=== PATIENT | male | born 1970 | race Caucasian/White ===

== ENCOUNTER 2017-01-26 21:15 | Emergency (ER) | payer OTHER ==
--- NOTE | 2017-01-26 22:14 | EDM.PDOC ---
ED HPI GENERAL MEDICAL PROBLEM - General Chief Complaint: Chest Pain Stated Complaint: CHEST PAIN Time Seen by Provider: 01/26/17 21:25 Source of Information: Reports: Patient History Limitations: Reports: No Limitations - History of Present Illness INITIAL COMMENTS - FREE TEXT/NARRATIVE: c/o L breast pain pt with discomfort in his L breast above the nipple when combining yesterday, hurt some again on awakening today and a little more when combining again, tender to touch, no mass, no warmth no radiation, no change in pain with moving LUE or DB not taken meds no sob, no n/v, no f/c/d h/o CP 5y ago and had neg w/u never smoked, takes no meds here with Left Breast Pain Score (Numeric/FACES): 7 - Related Data Allergies Allergy/AdvReac Type Severity Reaction Status Date / Time No Known Allergies Allergy Verified 01/26/17 21:38 Home Meds: Home Meds NK [No Known Home Meds] 01/26/17 [History] Past Medical History - Past Health History Medical/Surgical History: Denies Medical/Surgical History - Infectious Disease History Infectious Disease History: Reports: Chicken Pox Social & Family History - Family History Family Medical History: Noncontributory - Tobacco Use Smoking Status *Q: Never Smoker Second Hand Smoke Exposure: No - Caffeine Use Caffeine Use: Reports: Coffee - Recreational Drug Use Recreational Drug Use: No ED ROS GENERAL - Review of Systems Review Of Systems: See Below Constitutional: Reports: No Symptoms HEENT: Reports: No Symptoms Respiratory: Reports: No Symptoms Cardiovascular: Reports: Chest Pain Endocrine: Reports: No Symptoms GI/Abdominal: Reports: No Symptoms : Reports: No Symptoms Musculoskeletal: Reports: No Symptoms Skin: Reports: No Symptoms Neurological: Reports: No Symptoms Psychiatric: Reports: No Symptoms Hematologic/Lymphatic: Reports: No Symptoms Immunologic: Reports: No Symptoms ED EXAM, GENERAL - Physical Exam Exam: See Below Exam Limited By: No Limitations General Appearance: Alert, WD/WN, No Apparent Distress Ears: Normal External Exam Nose: Normal Inspection Throat/Mouth: Normal Inspection, Normal Voice, No Airway Compromise Head: Atraumatic, Normocephalic Neck: Normal Inspection, Supple, Non-Tender, Full Range of Motion Respiratory/Chest: No Respiratory Distress, Lungs Clear, Normal Breath Sounds, No Accessory Muscle Use, Other (breasts symmetric, perhaps slight tender at 10 o 'clock 3 cm from areola on L, no red, no warm, no nodule, no induration, no L axillary LNs) Cardiovascular: Regular Rate, Rhythm, No Edema, No Gallop, No JVD, No Rub, Other (2/6 [place] at LSB, quiet precordium) GI/Abdominal: Soft, Non-Tender, No Distention Back Exam: Normal Inspection, Full Range of Motion, NT Extremities: Normal Inspection, Normal Range of Motion, Non-Tender, No Pedal Edema Neurological: Alert, Oriented, CN II-XII Intact, Normal Cognition, No Motor/ Sensory Deficits Psychiatric: Normal Affect, Normal Mood Skin Exam: Warm, Dry, Intact, Normal Color, No Rash Lymphatic: No Adenopathy Course - Vital Signs Last Recorded V/S: Last Vital Signs Temp 36.5 C 01/26/17 21:39 Pulse 88 01/26/17 21:39 Resp 15 01/26/17 21:39 BP 154/98 H 01/26/17 21:39 Pulse Ox 99 01/26/17 21:39 - Orders/Labs/Meds Orders: Active Orders 24 hr Category Date Time Status EKG Documentation Completion [RC] ASDIRECTED Care 01/26/17 21:47 Active Chest 2V [CR] Stat Exams 01/26/17 21:43 Taken EKG 12 Lead [EK] Routine Ther 01/26/17 21:47 Ordered Labs: Laboratory Tests 01/26/17 01/26/17 01/26/17 Range/Units 22:05 22:05 22:05 WBC 9.3 (4.5-12.0) X10-3/uL RBC 5.44 (4.30-5.75) x10(6)uL Hgb 16.2 H (11.5-15.5) g/dL Hct 48.2 (30.0-51.3) % MCV 88.6 (80-96) fL MCH 29.8 (27.7-33.6) pg MCHC 33.6 (32.2-35.4) g/dL RDW 11.6 (11.5-15.5) % Plt Count 246 (125-369) X10(3)uL MPV 7.9 (7.4-10.4) fL Neut % (Auto) 65.5 (46-82) % Lymph % (Auto) 24.2 (13-37) % [place] % (Auto) 8.0 (4-12) % Eos % (Auto) 2 (1.0-5.0) % Baso % (Auto) 0 (0-2) % Neut # (Auto) 6.2 (1.6-8.3) # Lymph # (Auto) 2.2 (0.6-5.0) # [place] # (Auto) 0.7 (0.0-1.3) # Eos # (Auto) 0.2 (0.0-0.8) # Baso # (Auto) 0.0 (0.0-0.2) # D-Dimer, Quantitative (100-400) ng/mL Sodium 138 (135-145) mmol/L Potassium 3.7 (3.5-5.3) mmol/L Chloride 104 (100-110) mmol/L Carbon Dioxide 27 (23-29) mmol/L BUN 19 (5-20) mg/dL Creatinine 1.2 (0.6-1.3) mg/dL Est Cr Clr Drug Dosing 81.92 mL/min Estimated GFR (MDRD) > 60 (>60) BUN/Creatinine Ratio 15.8 (9-20) Glucose 106 (80-116) mg/dL Calcium 9.1 (8.6-10.2) mg/dL Total Bilirubin 0.5 (0.1-1.3) mg/dL AST 23 (5-27) IU/L ALT 31 H (14-26) IU/L Alkaline Phosphatase 49 L (56-112) IU/L Troponin I < 0.01 L (0.02-0.06) NG/ML C-Reactive Protein < 0.5 (0.0-1.0) mg/dL Total Protein 7.6 (6.0-8.0) g/dL Albumin 4.3 (3.5-5.2) g/dL Globulin 3.3 g/dL Albumin/Globulin Ratio 1.3 01/26/ Range/Units 22:05 WBC (4.5-12.0) X10-3/uL RBC (4.30-5.75) x10(6)uL Hgb (11.5-15.5) g/dL Hct (30.0-51.3) % MCV (80-96) fL MCH (27.7-33.6) pg MCHC (32.2-35.4) g/dL RDW (11.5-15.5) % Plt Count (125-369) X10(3)uL MPV (7.4-10.4) fL Neut % (Auto) (46-82) % Lymph % (Auto) (13-37) % [place] % (Auto) (4-12) % Eos % (Auto) (1.0-5.0) % Baso % (Auto) (0-2) % Neut # (Auto) (1.6-8.3) # Lymph # (Auto) (0.6-5.0) # [place] # (Auto) (0.0-1.3) # Eos # (Auto) (0.0-0.8) # Baso # (Auto) (0.0-0.2) # D-Dimer, Quantitative < 100 L (100-400) ng/mL Sodium (135-145) mmol/L Potassium (3.5-5.3) mmol/L Chloride (100-110) mmol/L Carbon Dioxide (23-29) mmol/L BUN (5-20) mg/dL Creatinine (0.6-1.3) mg/dL Est Cr Clr Drug Dosing mL/min Estimated GFR (MDRD) (>60) BUN/Creatinine Ratio (9-20) Glucose (80-116) mg/dL Calcium (8.6-10.2) mg/dL Total Bilirubin (0.1-1.3) mg/dL AST (5-27) IU/L ALT (14-26) IU/L Alkaline Phosphatase (56-112) IU/L Troponin I (0.02-0.06) NG/ML C-Reactive Protein (0.0-1.0) mg/dL Total Protein (6.0-8.0) g/dL Albumin (3.5-5.2) g/dL Globulin g/dL Albumin/Globulin Ratio - Re-Assessments/Exams Free Text/Narrative Re-Assessment/Exam: 01/26/17 22:48 w/u neg, EKG wnl, CxR neg, labs all neg hx and PE c/w muscle strain pt states he has no PCP, goes to [facility] when he needs to see a physician Departure - Departure Time of Disposition: 22:49 Disposition: Home, Self-Care 01 Condition: Good Clinical Impression: Anterior chest wall pain, Strain of left pectoralis muscle Instructions: Chest Wall Pain, Muscle Strain Referrals: PCP,None [Primary Care Provider] - Forms: ED Department Discharge Additional Instructions: Take ibuprofen 200 mg 4 tabs 3 times a day for 7 days. Use ice for 10 minutes several times a day as needed. See your physician in one week. Return to ED if you are feeling worse. Call your Physician or Return to Emergency Department if: * Your condition worsens in any way. * You develop fever greater than 100.4. * You have vomitting that does not stop with medications. * You have pain that is not controlled with medications. - My Orders Last 24 Hours: My Active Orders 01/26/17 21:43 Chest 2V [CR] Stat 01/26/17 21:47 EKG Documentation Completion [RC] ASDIRECTED EKG 12 Lead [EK] Routine - Assessment/Plan Last 24 Hours: My Active Orders 01/26/17 21:43 Chest 2V [CR] Stat 01/26/17 21:47 EKG Documentation Completion [RC] ASDIRECTED EKG 12 Lead [EK] Routine
--- NOTE | 2017-01-27 12:16 | CR ---
INDICATION: Left-sided chest pain. CHEST: PA and lateral views of the chest 01/26/2017 - no comparisons. Overlying EKG leads are noted. There appears to be some calcification at the arch of the aorta. The heart appears to be at the upper limits of normal in size. No specific chamber enlargement identified. Mediastinum and bony thorax were otherwise unremarkable. An active infiltrate or effusion was not identified. IMPRESSION: Findings suggest early ASHD. MTDD
== END 2017-01-26 22:52 | disposition home or self-care (01) ==
LOC: FB.ED 21:15
DX: S29.011A Strain of muscle and tendon of front wall of thorax, initial encounter (principal); X58.XXXA Exposure to other specified factors, initial encounter
CPT/HCPCS: 36415; 71020; 80053; 84484; 85025; 85379; 86140; 93005; 99285